=== PATIENT | male | born 1995 | race Caucasian/White ===

== ENCOUNTER 2017-05-11 16:43 | Emergency (ER) | payer BC ==
[2017-05-11 16:47] VITALS: RESP 18
--- NOTE | 2017-05-11 17:10 | ED ---
General Adult HPI - General Chief complaint: ENT Stated complaint: Chicken Stuck in Throat Time Seen by Provider: 05/11/17 16:53 Source: patient, RN notes reviewed Mode of arrival: ambulatory Limitations: no limitations - History of Present Illness Initial comments: Patient 21-year-old male who presents emergency room today with a chief complaint of possible foreign body to throat times one hour. Does admit that he was eating chicken. He states that he swallowed (1. down. States he coughed up some phlegm. Patient does admit that he's been able to swallow water since. He does admit that his fourth time that it's appendectomies come here to the emergency room once in the past never had to have a EGD. Patient denies any other complaints or associated symptoms. Patient denies any recent fever, chills, shortness of breath, chest pain, back pain, abdominal pain, nausea or vomiting, numbness or tingling, dysuria or hematuria, constipation or diarrhea, headaches or visual changes, or any other complaints. - Related Data Home Medications Medication Instructions Recorded Confirmed No Known Home Medications [No 03/27/14 05/11/17 Known Home Medications] Allergies Allergy/AdvReac Type Severity Reaction Status Date / Time azithromycin [From Zithromax] Allergy Anaphylaxis Verified 05/11/17 17:04 venom-honey bee Allergy Anaphylaxis Verified 05/11/17 17:04 [bee venom (honey bee)] Review of Systems ROS Statement: Those systems with pertinent positive or pertinent negative responses have been documented in the HPI. ROS Other: All systems not noted in ROS Statement are negative. Past Medical History Past Medical History: No Reported History History of Any Multi-Drug Resistant Organisms: None Reported Past Surgical History: No Surgical Hx Reported Additional Past Surgical History / Comment(s): oral surgery Past Psychological History: No Psychological Hx Reported Smoking Status: Current some day smoker Past Alcohol Use History: Occasional Past Drug Use History: None Reported General Exam - General Exam Comments Initial Comments: General: The patient is awake and alert, in no distress, and does not appear acutely ill. Currently drinking water at bedside. Eye: Pupils are equal, round and reactive to light, extra-ocular movements are intact. No nystagmus. There is normal conjunctiva bilaterally. No signs of icterus. Ears, nose, mouth and throat: There are moist mucous membranes and no oral lesions. Neck: The neck is supple, there is no tenderness or JVD. Cardiovascular: There is a regular rate and rhythm. No murmur, rub or gallop is appreciated. Respiratory: Lungs are clear to auscultation, respirations are non-labored, breath sounds are equal. No wheezes, stridor, rales, or rhonchi. Musculoskeletal: Normal ROM, no tenderness. Strength 5/5. Sensation intact. Pulses equal bilaterally 2+. Neurological: A&O x 3. CN II-XII intact, There are no obvious motor or sensory deficits. Coordination appears grossly intact. Speech is normal. Skin: Skin is warm and dry and no rashes or lesions are noted. Psychiatric: Cooperative, appropriate mood & affect, normal judgment. Limitations: no limitations Course Vital Signs 05/11/17 16:44 Temperature 98.0 F Pulse Rate 90 Respiratory 18 Rate Blood Pressure 134/86 O2 Sat by Pulse 100 Oximetry Medical Decision Making - Medical Decision Making Patient reexamined at this time shows no signs of distress. His x-rays been reviewed and does show possible foreign body in the lower esophagus. Results were discussed with attending physician . Results were also discussed with patient. At this time patient was asymptomatic. States he was feeling better. Strength is water here in the emergency room. Patient was given crackers and then Jell-O. Patient has been able tolerate both knees with no difficulty. Denies any symptoms or complaints currently at this time. Was discussed with patient about the importance of following up with GI. At this time as he is asymptomatic he will be discharged home and advised to return if any symptoms increase or worsen or for any other concerns. He states understanding and is in agreement. Disposition Clinical Impression: Globus hystericus Disposition: HOME SELF-CARE Condition: Good Instructions: Esophageal Foreign Body (ED) Additional Instructions: Please follow-up with GI over the next 1-2 days. Please return to emergency room if his symptoms return for any other concerns. Referrals: Nonstaff,Physician [Primary Care Provider] - 1-2 days Dimple Johnston MD [STAFF PHYSICIAN] - 1-2 days Time of Disposition: 18:51
--- NOTE | 2017-05-11 18:06 | XR ---
Exam: X-ray soft tissue neck 3 views of the soft tissues of the neck were obtained. HISTORY: Patient feels a lump in her throat. FINDINGS: There is abnormal soft tissue just inferior to the epiglottis. This could be due to the patient's swa llowing at the time of examination. If warranted direct visualization could be obtained. This area ap pears normal on the AP view. All all the upper lung sanchez are unremarkable. IMPRESSION: On the lateral view the central airway is not completely patent. This is anterior to the level of C7. This of unknown significance but a foreign body is not fully excluded at this location.
[2017-05-11 19:14] VITALS: BP 131/80; PULSE 70; TEMP 97.8
== END 2017-05-11 19:13 | disposition home or self-care (01) ==
LOC: EC 16:43
DX: F45.8 Other somatoform disorders (principal); F17.200 Nicotine dependence, unspecified, uncomplicated; Z88.1 Allergy status to other antibiotic agents; Z91.030 Bee allergy status
CPT/HCPCS: 70360; 99283